=== PATIENT | male | born 1990 | race Caucasian/White ===

== ENCOUNTER 2017-05-14 15:14 | Emergency (ER) | payer OTHER ==
[~2017-05-14] VITALS: Ht 188 cm; Wt 121.6 kg
--- OUTSIDE RECORDS SUMMARY | ~2017-05-14 | XMS | Clinical Summary ---
Demographics + + + | Address | [address] | | | [place] [address] | + + + | Home Phone | | + + + | Preferred Language | Unknown | + + + | Marital Status | Single | + + + | Bahai Affiliation | Unknown | + + + | Race | Unknown | + + + | Ethnic Group | Other Race | + + + Author + + + | Author | NON REVENUE LOCATIONS | + + + | Organization | NON REVENUE LOCATIONS | + + + | Address | Unknown | + + + | Phone | Unavailable | + + + Support +------+ + + + + | Name | Relationship | Address | Phone | +------+ + + + + ECON | [address] | | [place] [address] | +------+ + + + + ECON | Unknown | | +------+ + + + + Care Team Providers + +------+ + | Care National Park Ranger Name | Role | Phone | + +------+ + | No Pcp Per Patient | PP | Unavailable | + +------+ + Source Comments TAISHA is fully live on both [facility] and [facility] Allergies Not on File Current Medications Not on file Active Problems Not on file Social History + +-------+ +--------+------+ | Tobacco Use | Types | Packs/Day | Years | Date | | | | | Used | | + +-------+ +--------+------+ | Never Assessed | | | | | + +-------+ +--------+------+ + + + | Sex Assigned at | Date Recorded | | | | + + + | Not on file | | + + + Plan of Treatment + + + + + | Health Maintenance | Due Date | Last Done | Comments | + + + + + | INFLUENZA VACCINE | | | | | (FLU SHOT) | 7 | | | + + + + + Results Not on filefrom Last 3 Months"
--- OUTSIDE RECORDS SUMMARY | ~2017-05-14 | XMS ---
Demographics + + + | Address | [address] | | | [place] [address] | + + + | Preferred Language | Unknown | + + + | Marital Status | Unknown | + + + | Synagogue Affiliation | Unknown | + + + | Race | Unknown | + + + | Ethnic Group | Unknown | + + + Author + + + | Author | [facility] | + + + | Organization | [facility] | + + + | Address | [address] | | | [place] [address] | + + + | Phone | | + + + Care Team Providers + + + + | Care Ship'S Carpenter Name | Role | Phone | + + + + Unavailable | Unavailable | + + + + PROBLEMS + + + + + + + + | Type | Condition | ICD9-CM | CMF30-KS | Onset | Condition | SNOMED | | | | Code | Code | Dates | Status | Code | + + + + + + + + | Assessment | Acute | H10.33 | | 12 August, | Active | [id number] | | | conjunctiv | | | 2016 | | | | | itis, | | | | | | | | bilateral | | | | | | + + + + + + + + | Assessment | Strep | J02.0 | | 12 August, | Active | [id number] | | | pharyngiti | | | 2016 | | | | | s | | | | | | + + + + + + + + | Problem | Hyperglyce | 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.29 | | | Active | 15798730 | | | bibi | | | | | | + + + + + + + + | Problem | Hyperlipid | 272.4 | | | Active | 07003487 | | | emia | | | | | | + + + + + + + + | Problem | Family | V18.0 | | | Active | [id number] | | | history of | | | | | | | | diabetes | | | | | | | | mellitus | | | | | | + + + + + + + + | Problem | POLYDIPSIA | 783.5 | | | Active | 84559528 | + + + + + + + + | Problem | URINARY | 788.41 | | | Active | [id number] | | | FREQUENCY | | | | | | + + + + + + + + | 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 | Unknown | Non Drug | August, | Unknown | | | | Allergy | | | + + + + +---------+ SOCIAL HISTORY No smoking Hx information available PLAN OF CARE VITAL SIGNS + + + + | Height | 74 in | 2016-08-26 | + + + + | Weight | 255.6 lbs | 2016-08-26 | + + + + | BMI | 32.81 kg/m2 | 2016-08-26 | + + + + | Temperature | 97.9 degrees Fahrenheit | 2016-08-26 | + + + + | Heart Rate | 71 /min | 2016-08-26 | + + + + | Blood pressure systolic | 148 mm Hg | 2016-08-26 | + + + + | Blood pressure diastolic | 101 mm Hg | 2016-08-26 | + + + + MEDICATIONS + + + + + + + +--------+ | Medicati | Instruct | Dosage | Frequenc | Start | End Date | Duration | Status | | on | ions | | y | Date | | | | + + + + + + + +--------+ | Penicill | orally | 1 tablet | 12h | 26 August, | 05 September, | 10 days | Active | | in V | Twice a | | | 2016 | 2016 | | | | Potassiu | day | | | | | | | | m 500 MG | | | | | | | | + + + + + + + +--------+ | Polytrim | Ophthalm | 1 drop | 6h | 26 August, | 31 August, | 5 day(s) | Active | | | ic Four | into | | 2016 | 2016 | | | | 65809-2. | times a | affected | | | | | | | 1 | day | eye | | | | | | | UNIT/ML | | | | | | | | + + + + + + + +--------+ | Ibuprofe | Orally | 1 tablet | 6h | | | | Active | | n 200 MG | every 6 | as | | | | | | | | hrs | needed | | | | | | + + + + + + + +--------+ RESULTS + +--------+------+ + | Name | Result | Date | Reference Range | + +--------+------+ + | Strep Gp A Rapid | | | | | (IH) | | | | + +--------+------+ + PROCEDURES + + + + + | Procedure | Date Ordered | Related Diagnosis | Body Site | + + + + + | STREP A ASSAY | August 26, 2016 | | | | W/OPTIC | | | | + + + + + | Est Level III | August 26, 2016 | | | | Intermediate | | | | + + + + + IMMUNIZATIONS No Known Immunizations"
--- OUTSIDE RECORDS SUMMARY | ~2017-05-14 | XMS | Clinical Summary ---
Demographics + + + | Address | [address] | | | [place] [address] | + + + | Home Phone | | + + + | Preferred Language | Unknown | + + + | Marital Status | Single | + + + | Hoahaoism Affiliation | Unknown | + + + [...] [address] | | [place] [address] | +------+ + + + + ECON | Unknown | | +------+ + + + + Care Team Providers + +------+ + | Care Business Services Sales Representative Name | Role | Phone | + +------+ + | No Pcp Per Patient | PP | Unavailable | + +------+ + Source Comments TAISHA is fully live on both [facility] and [facility] InPatient.[facility] Allergies Not on File Current [...]
[2017-05-14] MEDS ORDERED: IBUPROFEN800 MG PO (17:16)
== END 2017-05-14 19:08 | disposition home or self-care (01) ==
LOC: ED 15:14
PROC: 0H9FXZZ Drainage of Right Hand Skin, External Approach (ICD-10-PCS; principal; 2017-05-14)
DX: S60.131A Contusion of right middle finger with damage to nail, initial encounter (principal); W23.0XXA Caught, crushed, jammed, or pinched between moving objects, initial encounter; Y92.89 Other specified places as the place of occurrence of the external cause
CPT/HCPCS: 11740; 73130; 99283

== ENCOUNTER 2019-12-13 08:45 | Day surgery (SDC) | payer OTHER ==
[~2019-12-13] VITALS: Ht 188 cm; Wt 117.9 kg
[~2019-12-13 08:45] MED LIST: BUPROPION XL150 MG PO; FLUOXETINE HCL20 MG PO; IBUPROFEN800 MG PO
--- NOTE | 2019-12-13 12:44 | NUR ---
12/13/19 1244 Katty Brooks 1240 PATIENT ARRIVES TO PACU UNRESPONSIVE TO PAIN, ORAL AIRWAY IN PLACE, MASK AT 10 LITERS FROM OR DECREASED TO 6L ON ARRIVAL.
--- NOTE | 2019-12-13 13:30 | NUR ---
PATIENT BACK IN DAY SURGERY ROOM FROM PACU. PATIENT DROWSY, BUT EASILY AWAKENS TO VOICE. DENIES PAIN. VS CHECKED. IV SITE WNL. LEFT GROIN DRESSING CDI. ICE PACK TO LEFT GROIN. SCDs ON. CALL LIGHT WITHIN REACH.
[2019-12-13] MEDS ORDERED: NORCO 10-325 T1 EACH PO (13:59)
--- NOTE | 2019-12-13 15:19 | NUR ---
1350: PATIENT ASSISTED OOB AND TO BATHROOM. GAIT STEADY. VOID WITHOUT DIFFICULTY. GAIT STEADY BACK TO ROOM. PATIENT BACK IN BED. AT BEDSIDE. 1425: VS CHECKED. PATIENT GIVEN PUDDING TO EAT. MEDICATED FOR 5/10 PAIN WITH HYDROCODONE. DISCHARGE INSTRUCTIONS GIVEN TO PATIENT AND . IV DC'D WNL. PATIENT GETTING DRESSED WITH HELP FROM . 1450: PATIENT DISCHARGED TO HOME WITH VIA WHEELCHAIR.
--- NOTE | 2019-12-14 13:16 | OR ---
[facility] [address] [place], [place] [address] Signed DATE OF OPERATION: 12/13/2019 SURGEON: Bjorn Escalera MD PREOPERATIVE DIAGNOSIS: Reducible left inguinal hernia. POSTOPERATIVE DIAGNOSES: 1. Reducible left indirect inguinal hernia. 2. Chronic infected hair follicle, left groin. PROCEDURES: 1. Irvin onlay mesh left inguinal herniorrhaphy. 2. Excision of left groin chronically infected hair follicle. ESTIMATED BLOOD LOSS: None. INDICATIONS: Jeb is a 29-year-old gentleman asked to see me for his left inguinal hernia. He underwent a previous right inguinal hernia surgery about eight years ago. He recognized the pain and swelling in the left groin as a hernia. He said he works at the [employer], and has to stand and sit throughout the day. He said the last several weeks he has noticed this has been getting worse. He finally went to his primary care provider for evaluation. In the meantime, he did have an ultrasound done of the left groin, and he has a small inguinal hernia containing fat around 1.6 cm in diameter. On exam, I could feel the inguinal hernia. It appears to be reducible on exam. I had given Jeb a booklet on hernias, we looked at that together page by page. He understands the nature of an inguinal hernia along with a difference between the primary suture repair and a mesh repair. We did review the expected intraop and postop course. He understands there is risk including, but not limited to bleeding, infection, scarring, change in contour of the skin, damage to nerves, ischemic orchitis, recurrent hernias, and chronic pain. He had expressed understanding and wished to proceed. DESCRIPTION OF PROCEDURE: I met with Jeb in our preop area. We both agreed and marked his left groin appropriately. After this, he was taken into the operating room and placed in the supine position under general LMA anesthesia. He was given preoperative antibiotics along with subcutaneous heparin. SCDs were utilized. He was then prepped and draped in the usual sterile fashion. We utilized a mirror incision in the left groin to match the Electronically Signed By: BJORN ESCALERA MD 12/14/19 1316 PATIENT NAME: JEB VILLANUEVA OPERATIVE REPORT DATE OF : 89 REPORT #: [id number] PHYSICIAN: BJORN ESCALERA MD PCP: DARA HORTON REPORT IS CONFIDENTIAL AND NOT TO BE RELEASED WITHOUT AUTHORIZATION [facility] [address] [place], [place] [address] Signed right groin. Only it is about a centimeter lower, so in that way we included the chronically infected hair follicle in our incision. We simply went around the hair follicle and sent that off to the Pathology Department for pathologic review. We dissected down to the tissue bluntly and with the cautery. The external oblique fascia was opened along its length and developed medially and laterally. The ilioinguinal and iliohypogastric nerves were visualized and protected throughout the case. The cord structures were elevated at the level of pubic tubercle with the help of a Jose Elias drain. We could see immediately that he had significant laxity to the direct space, not a true hernia, but certainly bulging. We then dissected out the cord structures at the level of deep ring and had three separate moderate-sized lobes of fat coming through the deep ring. Each one was suture ligated at the level of the deep ring and amputated and passed off the field. After this, we imbricated the floor of inguinal canal with a running 2-0 PDS suture starting at the level of the pubic tubercle up to the level of deep ring. A piece of flat Prolene mesh was then cut to fit his groin and a slit was made in the mesh to accommodate the cord structures at the level of deep ring. The mesh was held in place medially and laterally with running #1 Prolene sutures. This gave excellent coverage of the direct and indirect spaces. Local anesthetic was then copiously injected into the operative field. The wound was irrigated and suctioned out until clear. We then closed the external oblique over the repair with a running 2-0 PDS suture. Mohinder fascia was reapproximated with a running 3-0 Monocryl suture. The dermis was reapproximated with interrupted 3-0 subcuticular Monocryl sutures. The skin edges were reapproximated with a running 5-0 fast absorbing plain gut suture. Dry gauze and tape were then applied. Jeb was awakened from his anesthesia, extubated in the OR, and taken to the recovery room in stable condition. Bjorn Escalera MD ALB/MODL /[id number] cc: MD Dara Vasquez PA Copies: BJORN ESCALERA MD Electronically Signed By: BJORN ESCALERA MD 12/14/19 1316 PATIENT NAME: HOISINGTON,JEB WENDY OPERATIVE REPORT DATE OF : 89 REPORT #: [id number] PHYSICIAN: BJORN ESCALERA MD PCP: DARA HORTON REPORT IS CONFIDENTIAL AND NOT TO BE RELEASED WITHOUT AUTHORIZATION [address] [address] Signed DARA HORTON ~ Electronically Signed By: BJORN ESCALERA MD 12/14/19 1316 PATIENT NAME: JEB VILLANUEVAN OPERATIVE REPORT DATE OF : 89 REPORT #: [id number] PHYSICIAN: BJORN ESCALERA MD PCP: DARA HORTON REPORT IS CONFIDENTIAL AND NOT TO BE RELEASED WITHOUT AUTHORIZATION
--- NOTE | 2019-12-16 16:32 | PATH ---
[facility] [address] [place], [place] [address] Signed SPECIMEN(S): A LEFT GROIN SPECIMEN SOURCE: A. LEFT GROIN CLINICAL HISTORY: Left inguinal hernia. Left groin skin lesion. FINAL PATHOLOGIC DIAGNOSIS: Left groin, excision: - Dilated follicle with adjacent chronic inflammation and fibrosis. - Negative for evidence of malignancy. JVR:cml:C2NR MICROSCOPIC EXAMINATION: Histologic sections of all submitted blocks are examined by light microscopy. These findings, together with the gross examination, support the pathologic diagnosis. GROSS DESCRIPTION: The specimen, labeled "DH," and designated on the requisition "left groin skin lesion," is received in formalin and consists of one piece of pink-sarah to hemorrhagic skin with underlying soft tissue (1.4 x 0.7 x 0.5 cm). The specimen is bisected and submitted entirely in cassette (A1). AC (under the direct supervision of a pathologist) The Gross Description was prepared using a voice recognition system. The report was reviewed for accuracy; however, sound-alike word errors, addition and/or deletions may occur. If there is any question about this report, please contact Client Services. PERFORMING LABORATORY: The technical component was performed by [email or web address], [address] [place] [id number] (Company Manager: Magui Graham MD; CLIA# [id number]). Professional interpretation was performed by [email or web address], [address] [address] (Company Manager: Jerry Ross M.D.). Diagnostician: Jerry Ross MD Pathologist Electronically Signed 12/16/2019 PATIENT NAME: JEB VILLANUEVA PATHOLOGY DATE OF : 89 REPORT #: [id number] PHYSICIAN: TESSY PATHOLOGY PCP: GUS HORTON REPORT IS CONFIDENTIAL AND NOT TO BE RELEASED WITHOUT AUTHORIZATION [address] [address] Signed Copies: ~ PATIENT NAME: JEB VILLANUEVA PATHOLOGY DATE OF : 89 REPORT #: [id number] PHYSICIAN: TESSY PATHOLOGY PCP: GUS HORTON REPORT IS CONFIDENTIAL AND NOT TO BE RELEASED WITHOUT AUTHORIZATION
== END 2019-12-13 14:50 | disposition home or self-care (01) ==
LOC: DS 08:45
PROVIDERS: Colon & Rectal Surgery
PROC: 0YU60JZ Supplement Left Inguinal Region with Synthetic Substitute, Open Approach (ICD-10-PCS; principal; 2019-12-13 10:30)
DX: K40.90 Unilateral inguinal hernia, without obstruction or gangrene, not specified as recurrent (principal); L90.5 Scar conditions and fibrosis of skin
CPT/HCPCS: 00830; C1781; J0330; J0690; J1100; J1644; J1885; J2250; J2405; J2704; J2765; J3010; J7121

== ENCOUNTER 2023-09-13 08:10 | Emergency (ER) | payer OTHER ==
[~2023-09-13] VITALS: Ht 188 cm; Wt 115.0 kg
[~2023-09-13 08:10] MED LIST changes: +HYDROCODON-ACE1 EA10 PO; +NORCO 10-325 T1 EACH PO; +PREDNISONE10 MG PO
--- OUTSIDE RECORDS SUMMARY | 2023-09-13 08:13 | XMS ---
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 ENeno VISIT COUNT ([address] [facility] TOTAL 2 NOTE: Visits indicate total known visits. ED/UCC VISIT TRACKING (12 MO.) 09/13/2023 08:11 [facility] TYPE: Emergency COMPLAINT: - L ANKLE SWELLING/PAIN 08/30/2023 07:46 [facility] TYPE: Emergency COMPLAINT: - L ANKLE/HEEL SWELLING/PAIN DIAGNOSES: - Gout, unspecified - Pain in left ankle and joints of left foot INPATIENT VISIT TRACKING (12 MO.) No inpatient visits to display in this time frame [email or web address]
[2023-09-13 08:37] VITALS: BP 153/102
== END 2023-09-13 08:38 | disposition home or self-care (01) ==
LOC: ED 08:10
DX: M10.9 Gout, unspecified (principal); Z79.52 Long term (current) use of systemic steroids
CPT/HCPCS: 99283